=== PATIENT | male | born 1985 | race Caucasian/White ===

== ENCOUNTER 2016-12-25 16:26 | Emergency (ER) | payer SELFPAY ==
[~2016-12-25] VITALS: Ht 182.9 cm; Wt 80.0 kg
[~2016-12-25 16:26] MED LIST: AMOXICILLIN500 MG PO; NO MEDS; TRAMADOL HCL50 MG OR; ULTRAM50 MG OR
[2016-12-25] MEDS ORDERED: BACTRIM DS1 TAB PO (17:13)
[2016-12-25 17:33] VITALS: BP 111/75
== END 2016-12-25 17:39 | disposition home or self-care (01) | DRG 603 ==
LOC: ED 16:26
PROC: 0H9KXZZ Drainage of Right Lower Leg Skin, External Approach (ICD-10-PCS; principal; 2016-12-25)
DX: L02.415 Cutaneous abscess of right lower limb (principal); F17.210 Nicotine dependence, cigarettes, uncomplicated; Z72.89 Other problems related to lifestyle

== ENCOUNTER 2017-04-22 12:51 | Emergency (ER) | payer SELFPAY ==
[~2017-04-22] VITALS: Ht 182.9 cm; Wt 70.0 kg
[~2017-04-22 12:51] MED LIST changes: +BACTRIM DS1 TAB PO
[2017-04-22] MEDS ORDERED: NAPROSYN500 MG PO (14:42)
[2017-04-22 14:47] VITALS: BP 122/66
== END 2017-04-22 14:48 | disposition home or self-care (01) | DRG 563 ==
LOC: ED 12:51
DX: S63.501A Unspecified sprain of right wrist, initial encounter (principal); W01.0XXA Fall on same level from slipping, tripping and stumbling without subsequent striking against object, initial encounter; Y93.89 Activity, other specified; Y92.007 Garden or yard of unspecified non-institutional (private) residence as the place of occurrence of the external cause

== ENCOUNTER 2019-01-31 09:39 | Emergency (ER) | payer SELFPAY ==
[~2019-01-31] VITALS: Ht 182.9 cm; Wt 75.0 kg
[~2019-01-31 09:39] MED LIST changes: +NAPROSYN500 MG PO
[2019-01-31] MEDS ORDERED: CEPHALEXIN500 M1 PO ×2 (09:55→10:33)
[2019-01-31] MEDS ORDERED: BACTRIM DS1 TAB PO ×2 (09:55→10:33)
[2019-01-31 10:27] VITALS: BP 144/76
== END 2019-01-31 10:30 | disposition home or self-care (01) | DRG 603 ==
LOC: ED 09:39
PROC: 0H9DXZZ Drainage of Right Lower Arm Skin, External Approach (ICD-10-PCS; principal; 2019-01-31)
DX: L02.413 Cutaneous abscess of right upper limb (principal); F17.200 Nicotine dependence, unspecified, uncomplicated; B96.89 Other specified bacterial agents as the cause of diseases classified elsewhere

== ENCOUNTER 2019-05-27 10:42 | Emergency (ER) | payer SELFPAY ==
[~2019-05-27] VITALS: Ht 182.9 cm; Wt 75.0 kg
[~2019-05-27 10:42] MED LIST changes: +CEPHALEXIN500 M1 PO
[2019-05-27] MEDS ORDERED: BACTRIM DS1 TAB PO ×2 (10:54→11:22)
[2019-05-27] MEDS ORDERED: CEPHALEXIN500 M1 PO ×2 (10:54→11:22)
[2019-05-27 11:29] VITALS: BP 126/75
== END 2019-05-27 11:24 | disposition home or self-care (01) | DRG 603 ==
LOC: ED 10:42
PROC: 0H9EXZZ Drainage of Left Lower Arm Skin, External Approach (ICD-10-PCS; principal; 2019-05-27)
DX: L02.414 Cutaneous abscess of left upper limb (principal); B96.1 Klebsiella pneumoniae [K. pneumoniae] as the cause of diseases classified elsewhere; F17.210 Nicotine dependence, cigarettes, uncomplicated

== ENCOUNTER 2020-02-03 11:44 | Emergency (ER) | payer OTHER ==
[~2020-02-03] VITALS: Ht 182.9 cm; Wt 79.5 kg
[2020-02-03] MEDS ORDERED: BACTRIM DS1 TAB PO (12:39)
[2020-02-03 13:15] VITALS: BP 125/70
== END 2020-02-03 13:15 | disposition home or self-care (01) ==
LOC: ED 11:44
DX: L02.413 Cutaneous abscess of right upper limb (principal); F17.210 Nicotine dependence, cigarettes, uncomplicated

== ENCOUNTER 2021-11-17 14:41 | Emergency (ER) | payer OTHER ==
[~2021-11-17] VITALS: Ht 182.9 cm; Wt 80.0 kg
[2021-11-17 14:49] VITALS: BP 123/86
[2021-11-17 15:44] LABS: HEMATOCRIT 44.1 % (39.0-50.0); HEMOGLOBIN 14.3 g/dl (14.0-18.0); IMMATURE GRANULOCYTES 0.1 % (0.0-5.0); MEAN CELL VOLUME 92.8 fL CALC (80.0-100.0); MEAN CORPUSCULAR HGB 30.1 pG CALC (26.0-32.0); MEAN CORPUSCULAR HGB CONC 32.4 g/dL CAL (32.0-36.0); NEUT# 6.72 thou/uL (1.82-7.42); RED BLOOD COUNT 4.75 mill/uL (4.70-6.10); RED CELL DISTRI WIDTH 13.8 % (11.5-15.5)
[2021-11-17 16:02] LABS: ALBUMIN 4.4 g/dL (3.2-5.0); ALKALINE PHOSPHATASE 75 u/l (38-126); AMYLASE 58 u/l (30-110); ANION GAP 13 (6-22 (CALC)); BILIRUBIN, TOTAL 0.5 mg/dL (0.0-1.4); BUN 11 mg/dL (9-20); BUN/CREATININE RATIO 16 (12-20 (CALC)); CARBON DIOXIDE 28 mmol/l (22-30); CHLORIDE 101 mmol/l (95-108); CREATININE 0.7 mg/dL (0.7-1.3); ETHYL ALCOHOL 0 mg/dl (0-30); GFR > 60 ML/MIN (>=60 (CALC)); GFR FOR AFR.AMER. > 60 ML/MIN (>=60 (CALC)); LIPASE 38 u/l (23-300); POTASSIUM 4.1 mmol/l (3.5-5.1); SGOT/AST 26 u/l (17-59); SODIUM 138 mmol/l (137-146); TOTAL PROTEIN 8.2 g/dL (6.3-8.2)
[2021-11-17 16:40] VITALS: BP 118/78
[2021-11-17 16:54] LABS: URINE BILIRUBIN - DIPSTICK NEGATIVE (NEGATIVE); URINE BLOOD DIPSTICK NEGATIVE (NEGATIVE); URINE COLOR YELLOW; URINE GLUCOSE - DIPSTICK NEGATIVE (NEGATIVE); URINE KETONE 15 mg/dL (NEGATIVE); URINE LEUK ESTERASE NEGATIVE (NEGATIVE); URINE PH 7.5 (4.5-8.0); URINE PROTEIN - DIPSTICK NEGATIVE (NEG-TRACE); URINE UROBILINOGEN - DIPSTICK 0.2 E.U./dL (0.2)
[2021-11-17 16:59] LABS: URINE NITRITE - DIPSTICK NEGATIVE (Negative)
[2021-11-17] MEDS ORDERED: PROTONIX40 MG PO (18:24)
[2021-11-17 18:28] VITALS: BP 118/78
== END 2021-11-17 18:31 | disposition home or self-care (01) ==
LOC: ED 14:41
DX: K56.7 Ileus, unspecified (principal); F17.210 Nicotine dependence, cigarettes, uncomplicated
CPT/HCPCS: Q9967; S0164

== ENCOUNTER 2022-05-02 06:01 | Emergency (ER) | payer OTHER ==
[~2022-05-02] VITALS: Ht 182.9 cm; Wt 81.8 kg
[~2022-05-02 06:01] MED LIST changes: +PROTONIX40 MG PO
[2022-05-02 06:13] VITALS: BP 99/65
[2022-05-02 06:16] VITALS: BP 115/71
[2022-05-02 06:30] VITALS: BP 92/49
[2022-05-02 06:45] VITALS: BP 115/76
[2022-05-02] MEDS ORDERED: GENTAMICIN SULF5 ML OS (06:49)
[2022-05-02 07:02] VITALS: BP 115/76
== END 2022-05-02 07:24 | disposition home or self-care (01) ==
LOC: ED 06:01
DX: S05.02XA Injury of conjunctiva and corneal abrasion without foreign body, left eye, initial encounter (principal); F17.200 Nicotine dependence, unspecified, uncomplicated; X58.XXXA Exposure to other specified factors, initial encounter; Y93.H3 Activity, building and construction; Y92.89 Other specified places as the place of occurrence of the external cause; Y99.0 Civilian activity done for income or pay

== ENCOUNTER 2023-04-02 20:44 | Emergency (ER) | payer OTHER ==
[2023-04-02] VITALS (7 sets, daily range): BP systolic 87–114; BP diastolic 46–73
[~2023-04-02] VITALS: Ht 182.9 cm; Wt 74.0 kg
[~2023-04-02 20:44] MED LIST changes: +GENTAMICIN SULF5 ML OS
== END 2023-04-02 23:04 | disposition home or self-care (01) ==
LOC: ED 20:44
DX: M54.9 Dorsalgia, unspecified (principal); F17.200 Nicotine dependence, unspecified, uncomplicated

== ENCOUNTER 2024-02-19 13:32 | Emergency (ER) | payer OTHER ==
[~2024-02-19 13:32] MED LIST changes: +KEFLEX500 MG PO; +TRAMADOL HYDROC50 M1 PO
== END 2024-02-19 13:35 | disposition left against medical advice (07) | DRG 951 ==
LOC: ED 13:32 → LWOBS 13:34
DX: Z53.21 Procedure and treatment not carried out due to patient leaving prior to being seen by health care provider (principal)

== ENCOUNTER 2024-03-11 07:38 | Emergency (ER) | payer OTHER ==
[~2024-03-11] VITALS: Ht 182.9 cm; Wt 72.6 kg
[2024-03-11 07:52] VITALS: BP 130/83
[2024-03-11 08:08] VITALS: BP 127/82
[2024-03-11 08:18] LABS: BASO% 0.2 % (0-3); EOS% 0.5 % (0-8); HEMATOCRIT 39.3 % (39.0-50.0); HEMOGLOBIN 12.8 g/dl (14.0-18.0); LYMPH% 17.6 % (15-41); MEAN CELL VOLUME 94.2 fL CALC (80.0-100.0); MEAN CORPUSCULAR HGB 30.7 pG CALC (26.0-32.0); MEAN CORPUSCULAR HGB CONC 32.6 g/dL CAL (32.0-36.0); MONO% 8.6 % (2-13); NEUT# 7.6 thou/uL (1.82-7.42); NEUT% 72.1 % (42-76); RED BLOOD COUNT 4.17 mill/uL (4.70-6.10)
[2024-03-11 08:30] VITALS: BP 119/82
[2024-03-11 08:37] LABS: ALBUMIN 4.1 g/dL (3.2-5.0); BILIRUBIN, TOTAL 0.5 mg/dL (0.2-1.3); CREATININE 0.7 mg/dL (0.7-1.3); POTASSIUM 3.4 mmol/l (3.5-5.1); TOTAL PROTEIN 8.1 g/dL (6.3-8.2)
[2024-03-11 09:16] VITALS: BP 132/80
[2024-03-11 09:30] VITALS: BP 125/80
[2024-03-11] MEDS ORDERED: NAPROXEN500 MG PO (10:54)
[2024-03-11] MEDS ORDERED: HYDROcodone/Acetaminophen 1 COMBO TAB PO ONE (10:55)
[2024-03-11 11:10] VITALS: BP 125/80
== END 2024-03-11 11:20 | disposition home or self-care (01) | DRG 563 ==
LOC: ED 07:38
PROVIDERS: Family Medicine
DX: S29.011A Strain of muscle and tendon of front wall of thorax, initial encounter (principal); F19.10 Other psychoactive substance abuse, uncomplicated; F41.9 Anxiety disorder, unspecified; F17.210 Nicotine dependence, cigarettes, uncomplicated; X58.XXXA Exposure to other specified factors, initial encounter
CPT/HCPCS: Q9967

== ENCOUNTER 2024-09-16 15:32 | Emergency (ER) | payer SELFPAY ==
[~2024-09-16] VITALS: Ht 182.9 cm; Wt 79.0 kg
[~2024-09-16 15:32] MED LIST changes: +NAPROXEN500 MG PO
[2024-09-16 16:20] VITALS: BP 138/86
[2024-09-22] MEDS ORDERED: DOXYCYCLINE100 MG PO (08:54)
== END 2024-09-16 19:12 | disposition left against medical advice (07) | DRG 951 ==
LOC: ED 15:32 → LWOBS 19:10
DX: Z53.21 Procedure and treatment not carried out due to patient leaving prior to being seen by health care provider (principal)

== ENCOUNTER 2024-09-16 20:04 | Emergency (ER) | payer OTHER ==
[~2024-09-16] VITALS: Ht 182.9 cm; Wt 80.0 kg
[2024-09-16 20:27] VITALS: BP 145/78
[2024-09-22] MEDS ORDERED: DOXYCYCLINE100 MG PO (08:54)
== END 2024-09-16 21:55 | disposition left against medical advice (07) | DRG 951 ==
LOC: ED 20:04 → LWOBS 21:55
DX: Z53.21 Procedure and treatment not carried out due to patient leaving prior to being seen by health care provider (principal)

== ENCOUNTER 2024-09-20 19:25 | Emergency (ER) | payer SELFPAY ==
[~2024-09-20] VITALS: Ht 182.9 cm; Wt 84.0 kg
[2024-09-20] MEDS ORDERED: oxyCODONE 5MG/ ACETAMINOPHEN 325MG TAB PO ONE (21:00)
[2024-09-20] MEDS ORDERED: DOXYCYCLINE HYCLATE 100 MG/CAP PO ONE (21:00)
[2024-09-20] MEDS ORDERED: DOXYCYCLINE100 MG PO (21:03)
[2024-09-20] MEDS ORDERED: PERCOCET 5/325M1 TAB PO (21:03)
[2024-09-20 21:23] VITALS: BP 124/81
[2024-09-22] MEDS ORDERED: DOXYCYCLINE100 MG PO (08:54)
== END 2024-09-20 21:18 | disposition home or self-care (01) | DRG 603 ==
LOC: ED 19:25
DX: L03.011 Cellulitis of right finger (principal); F41.9 Anxiety disorder, unspecified; F17.200 Nicotine dependence, unspecified, uncomplicated